=== PATIENT | female | born 1945 | race Caucasian/White ===

== ENCOUNTER → 2017-01-19 | Outpatient (CLI) | payer MEDICARE, MEDICAID ==
[~2017-01-19] MED LIST: METHACHOLINE KIT (J7674) INH ONE
--- NOTE | 2017-01-19 16:38 | PFTRPT ---
Tech: Forrest GARCIA RRT Age: 71 Sex: Female Race: Height: 58.00 Inches Weight: 150.00 Lbs BSA: 1.61 Diagnosis: R06.00 METHACHOLINE CHALLENGE REPORT: ORDERING PROVIDER: Cesar Stahl DO DATE OF SERVICE: 01/19/17 INTERPRETATION: The study was of excellent technical quality. Under protocol, methacholine was administered. At a dose of 25 mg (188.875 CDUs), a 28% decline in the FEV1 was noted. The PC20 of 13.38 falls into the not clearly diagnostic realm. Flow rates returned to near baseline post bronchodilator administration. IMPRESSION: Indeterminate methacholine challenge study in view of the above. Please correlate clinically. MTDD
== END ==
LOC: M CARPUL 12:56
PROVIDERS: ATTEND Internal Medicine Pulmonary Disease
DX: R06.00 Dyspnea, unspecified (principal)
CPT/HCPCS: 94070; 95070; J7674